=== PATIENT | female | born 1985 | race Hispanic/Latino ===

== ENCOUNTER → 2024-09-23 | Outpatient (CLI) | payer OTHER ==
[~2024-09-23] MED LIST: GADOTERATE MEGLUMINE 10 MMOL/20 ML VIAL IV ONE
--- NOTE | 2024-09-23 11:58 | HMCIMG ---
Exam Type: MRI OF THE ABDOMEN WITH AND WITHOUT CONTRAST Comparison Study: none History: R93.3 Abnormal findings on diagnostic imaging of other parts of digestive t PROTOCOL: Examination is done with multiecho multiplanar sequences before and after gadolinium administration. ASSET with multiplanar 3-D reconstructions MR cholangiopancreatography sequences are also available for review. FINDINGS: No evidence of nephro or ureterolithiasis is found. No hydronephrosis or ureteral dilatation is seen. The stomach is unremarkable. There is no evidence of gastric dilatation. No blastic thickening is noted to suggest inflammation or tumor. There is no perforation. There is no gastric outlet obstruction. There is no ulceration. The spleen is unremarkable. It is not enlarged. The pancreas shows normal anatomy. It is not fatty replaced. It shows no lesions. The pancreatic duct is not dilated. There is evidence of cholelithiasis. No evidence of acute or chronic inflammation is seen. The adrenal glands are unremarkable. There is no enlargement. No lesions are noted. The liver shows a benign lesion of the left lobe, measuring 2 cm, with typical centripetal enhancement pattern of a benign liver hemangioma. No worrisome liver lesions are seen. The visualized segments of large and small bowel appear unremarkable. The bony and vascular structures are unremarkable for the patient's age. IMPRESSION: Cholelithiasis. Benign left liver lobe lesion.
== END | disposition home or self-care (01) ==
LOC: RAH 09:19
PROVIDERS: ATTEND Internal Medicine Gastroenterology
DX: D18.09 Hemangioma of other sites (principal); K80.20 Calculus of gallbladder without cholecystitis without obstruction; K76.9 Liver disease, unspecified; R93.3 Abnormal findings on diagnostic imaging of other parts of digestive tract
CPT/HCPCS: 74183; A9575